=== PATIENT | male | born 1990 | race American Indian/Alaskan Native ===

== ENCOUNTER 2017-02-26 16:02 | Emergency (ER) | payer OTHER ==
[2017-02-26 16:12] VITALS: BP 116/63
[2017-02-26] MEDS ORDERED: FLEXERIL PO ONE (19:24)
[2017-02-26] MEDS ORDERED: NORCO 5/325 PO ONE (19:24)
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
== END 2017-02-26 20:02 | disposition home or self-care (01) ==
LOC: ED 16:02
DX: S16.1XXA Strain of muscle, fascia and tendon at neck level, initial encounter (principal); M54.6 Pain in thoracic spine; M25.512 Pain in left shoulder; V89.2XXA Person injured in unspecified motor-vehicle accident, traffic, initial encounter; Y93.89 Activity, other specified; Y92.89 Other specified places as the place of occurrence of the external cause; Y99.8 Other external cause status
CPT/HCPCS: 99282

== ENCOUNTER 2018-07-25 15:13 | Emergency (ER) | payer OTHER ==
[2018-07-25 16:30] VITALS: BP 122/78
--- NOTE | 2018-07-25 16:31 | Emergency Department Report ---
Abscess Boil HPI - HPI Chief Complaint: Skin/Abscess/Foreign Body Stated Complaint: POSSIBLE SPIDER BITE Time Seen by Provider: 07/25/18 16:28 Location: Other Severity: None History: Yes Insect Bite, No Fever, No Pain, No Purulent Drainage, No Numbness, No Foreign Body, No Previous History HPI: INSECT BITE TO BACK OF NECK. NO ABSCESS. NO DRAINAGE. RED AND RAISED. NO NE CROSIS. NO PAIN. WORK MADE HIM COME TO ER Home Medications: Previous Rx's Medication Instructions Recorded Last Taken Type Sulfamethoxazole/Trimethoprim 1 each PO BID #6 tablet 07/25/18 Unknown Rx [Bactrim DS TAB] Allergies/Adverse Reactions: Allergies Allergy/AdvReac Type Severity Reaction Status Date / Time No Known Allergies Allergy Verified 07/25/18 15:18 ED Review of Systems ROS: Stated complaint: POSSIBLE SPIDER BITE Other details as noted in HPI Comment: All other systems reviewed and negative ED Past Medical Hx - Past Medical History Previous Medical History?: No - Surgical History Past Surgical History?: No - Family History Family history: no significant - Social History Smoking Status: Never Smoker Substance Use Type: None - Medications Home Medications: Home Medications Medication Instructions Recorded Confirmed Last Taken Type Sulfamethoxazole/Trimethoprim 1 each PO BID #6 tablet 07/25/18 Unknown Rx [Bactrim DS TAB] ED Abscess Boil Physical Exam - Exam General: Vital signs noted. No distress. Alert and acting appropriately. Exam: Yes Normal Neurologic Exam, Yes Normal Circulation, No Tenderness, No Fluctuance, No Surrounding Cellulites/Erythema, No Lymphangitis, No Crepitation, No Heart Murmur Critical care attestation.: If time is entered above; I have spent that time in minutes in the direct care of this critically ill patient, excluding procedure time. ED Medical Decision Making - Medical Decision Making SIMPLE INSECT BITE Vital Signs 07/25/18 16:29 Temperature 98.3 F Pulse Rate 60 Respiratory 18 Rate Blood Pressure 122/78 [Right] O2 Sat by Pulse 100 Oximetry ED Disposition Clinical Impression: Insect bite Disposition: DC-01 TO HOME OR SELFCARE Is pt being admited?: No Does the pt Need Aspirin: No Condition: Stable Instructions: Insect Bite or Sting (ED) Additional Instructions: warm compresses meds as ordered follow up pcp if persists tylenol or motrin for pain Prescriptions: Sulfamethoxazole/Trimethoprim [Bactrim DS TAB] 1 each PO BID #6 tablet Referrals: [facility] [Outside] - 3-5 Days Time of Disposition: 16:29
== END 2018-07-25 16:35 | disposition home or self-care (01) ==
LOC: ED 15:13
DX: S10.96XA Insect bite of unspecified part of neck, initial encounter (principal); W57.XXXA Bitten or stung by nonvenomous insect and other nonvenomous arthropods, initial encounter; Y93.89 Activity, other specified; Y92.89 Other specified places as the place of occurrence of the external cause; Y99.8 Other external cause status
CPT/HCPCS: 99281